=== PATIENT | male | born 1980 | race Caucasian/White ===

== ENCOUNTER 2016-09-02 14:55 | Outpatient (CLI) | payer OTHER | END 2016-09-02 14:56 | disposition home or self-care (01) | LOC: NC 14:55 | PROVIDERS: ATTEND Internal Medicine | DX: E66.3 Overweight (principal); Z71.3 Dietary counseling and surveillance; Z68.43 Body mass index [BMI] 50.0-59.9, adult; I10 Essential (primary) hypertension; Z87.891 Personal history of nicotine dependence ==

== ENCOUNTER 2016-09-18 14:15 | Outpatient (CLI) | payer OTHER | END 2016-09-18 14:16 | disposition home or self-care (01) | LOC: NC 14:15 | PROVIDERS: ATTEND Internal Medicine | DX: E66.9 Obesity, unspecified (principal); Z68.43 Body mass index [BMI] 50.0-59.9, adult ==